=== PATIENT | male | born 1975 ===

== ENCOUNTER 2016-12-26 21:46 | Inpatient (IN) | payer SELFPAY ==
[2016-12-26 22:52] LABS: Bilirubin Negative (Negative); Blood, Urine Small (Negative); Glucose, Urine (Dipstick) Negative (Negative); Ketone, Urine 15 mg/dL (Negative); Nitrite Negative (Negative); Protein, Urine (Dipstick) 30 mg/dL (Neg-Trace)
[2016-12-26 22:54] LABS: Bacteria/HPF None Seen HPF (None Seen); Hyaline Casts/LPF 0-3 HYALINE CAST LPF (0-3 Hyaline); RBC/HPF 0-3 HPF (0-3); Squamous Epithelial None Seen HPF (0-3); WBC/HPF 0-3 HPF (0-3)
[2016-12-26 23:02] LABS: Amphetamine Not Detected (NotDetected); Methadone Not Detected (NotDetected); Methamphetamine Not Detected (NotDetected)
--- NOTE | 2016-12-26 23:05 | CT ---
CT BRAIN NONCONTRAST 12/26/16 HISTORY: Altered mental status. COMPARISON: None. FINDINGS: No territorial infarct or hemorrhage. No midline shift or mass effect. Ventricular size and extra-axi al CSF spaces are normal. Orbits are unremarkable. Soft tissues are unremarkable. Calvarium is intact. The paranasal sinuses an d mastoids are clear. IMPRESSION: No acute intracranial abnormality. POS: [facility]
[2016-12-26 23:09] LABS: #Monocytes 0.3 thou/uL (0.11-0.59); %Basophils 0.2 % (0.0-1.0); %Eosinophils 0.6 % (0.0-10.0); %Lymphocytes 22.3 % (21.0-51.0); %Monocytes 7.4 % (0.0-10.0); Hematocrit 40.4 % (42.0-52.0); Macrocytosis SLIGHT = 6-15 cells (100X) (0-5/hpf); Mean Platelet Volume 7.4 fL (7.4-10.4); Red Blood Cell (RBC) Count 3.73 mill/uL (4.70-6.10); White Blood Cell (WBC) Count 4.4 thou/uL (4.8-10.8)
[2016-12-26 23:13] LABS: ALT (SGPT) 55 U/L (8-55); AST (SGOT) 119 U/L (5-34); Alkaline Phosphatase 82 U/L (40-150); Anion Gap 28 mmol/L (10-20); BUN (Urea Nitrogen) Less than 4 mg/dL (8.9-20.6); Bilirubin, Total 0.9 mg/dL (0.2-1.2); Calc. Creatinine Clearance 0 mL/min (70-130); Calcium 9.4 mg/dL (7.8-10.44); Carbon Dioxide 15 mmol/L (22-29); Chloride 99 mmol/L (98-107); Estimated GFR-MDRD Greater than 90; Globulin 3.2 g/dL (2.4-3.5); Magnesium 1.6 mg/dL (1.6-2.6); Protein, Total 7.6 g/dL (6.0-8.3)
[2016-12-26] MEDS ORDERED: Multivitamins, Adult 10 ML, Thiamine HCl 100 MG, Folic Acid 1 MG in Dextrose 5 %-0.45 %... IV SCH ×4 (23:30)
[2016-12-26 23:40] LABS: Acetaminophen Less than 6.0 mcg/mL (10.0-30.0); Salicylate Less than 8.0 mg/dL (15.0-30.0)
[2016-12-27] MEDS ORDERED: Lorazepam 2 MG/ML VIAL ONE
[2016-12-27] MEDS ORDERED: Ondansetron HCl/PF 4 MG/2 ML Vial ONE (00:04)
[2016-12-27] MEDS ORDERED: Succinylcholine Chloride 20 MG/ML 10 ml SYRINGE FS ONE (00:05)
[2016-12-27] MEDS ORDERED: Propofol 1,000 MG/100 ML VIAL IV ONE (00:19)
[2016-12-27] MEDS ORDERED: Fentanyl 20 MCG/ML 250 ML ONE (00:19)
[2016-12-27] MEDS ORDERED: Midazolam HCl 5 mg/ml Vial ONE ×5 (00:32→01:32)
[2016-12-27 00:45] LABS: Lactic Acid - Sepsis 13.5 mmol/L (0.5-2.2)
[2016-12-27 00:53] LABS: Oxyhemoglobin 97.3 % (94.0-97.0); Sodium 140 mmol/L (135-148)
[2016-12-27] MEDS ORDERED: Fomepizole 1.2 GM in Sodium Chloride 0.9% 100 ML IVPB SCH (01:00)
[2016-12-27] MEDS ORDERED: Diazepam 10 MG/2 ML SYRINGE ONE ×3 (01:02→02:28)
[2016-12-27] MEDS ORDERED: HYDROMORPHONE HCL ONE (01:05)
[2016-12-27] MEDS ORDERED: Sodium Bicarbonate 2.4 MEQ/5 ML ONE (01:13)
[2016-12-27] MEDS ORDERED: Sodium Bicarb 50 MEQ/50 ML Abboject 8.4% SYRINGE ONE (01:14)
[2016-12-27] MEDS ORDERED: levETIRAcetam In NaCl (Iso-Os) 1,500 MG in Premix Bag 1 BAG IVPB SCH ×2 (01:30)
--- NOTE | 2016-12-27 01:30 | PDOC.EVN ---
Event Note - Event Note Event Note: [id number] 1. Acute encephalopathy + Possible DT 2. Seizures 3. Acute respiratory failure 4. R/O Aspirtaion 5. Anion gap metbaolic acidosis 6. Alcohol abuse plan: see orders
[2016-12-27] MEDS ORDERED: Ondansetron HCl/PF 4 MG/2 ML Vial IVP PRN (02:05)
[2016-12-27] MEDS ORDERED: Multivitamins, Adult 10 ML, Folic Acid 1 MG, Thiamine HCl 100 MG in Dextrose 5 %-0.45 %... IV SCH ×4 (02:15)
[2016-12-27] MEDS ORDERED: Propofol 1,000 MG/100 ML VIAL IV PRN (02:15)
[2016-12-27 02:21] LABS: Modified Allen's Test POSITIVE; Vent YES
[2016-12-27 02:22] LABS: Mechanical Tidal Volume 550 ml; Mode SIMV; Pressure Support 10 cmH2O
[2016-12-27 02:29] LABS: Oxyhemoglobin 97.6 % (94.0-97.0); Sodium 138 mmol/L (135-148)
[2016-12-27] MEDS ORDERED: Lorazepam 2 MG/ML VIAL SLOW IVP PRN (02:53)
[2016-12-27] MEDS ORDERED: Fentanyl 20 MCG/ML 250 ML IVPB SCH (02:53)
[2016-12-27] MEDS ORDERED: DISCONTINUE PREVIOUS NARCOTIC PAIN MEDICATIONS AND BENZODIAZEPINES FS SCH (02:53)
[2016-12-27] MEDS ORDERED: Morphine 4 MG/ML VIAL IV PRN (02:54)
[2016-12-27 02:55] LABS: Mechanical Tidal Volume 550 ml; Modified Allen's Test POSITIVE; Pressure Support 10 cmH2O; Vent YES
[2016-12-27 02:56] LABS: Mode SIMV
[2016-12-27 03:24] LABS: #Basophils 0.1 thou/uL (0.0-0.2); #Lymphocytes 0.5 thou/uL (1.20-3.40); #Monocytes 0.4 thou/uL (0.11-0.59); #Neutrophils 3.2 thou/uL (1.40-6.50); %Basophils 1.3 % (0.0-1.0); %Eosinophils 0.3 % (0.0-10.0); %Lymphocytes 12.8 % (21.0-51.0); %Monocytes 8.8 % (0.0-10.0); Hematocrit 34.6 % (42.0-52.0); Red Blood Cell (RBC) Count 3.22 mill/uL (4.70-6.10); White Blood Cell (WBC) Count 4.2 thou/uL (4.8-10.8)
[2016-12-27] MEDS: Piperacillin/Tazobactam 3.375 GM in Sodium Chloride 0.9% 100 ML IVPB SCH ×4 (03:39→21:18)
[2016-12-27 03:53] VITALS: BMI 22.2
[2016-12-27 04:15] LABS: ALT (SGPT) 46 U/L (8-55); AST (SGOT) 127 U/L (5-34); Alkaline Phosphatase 64 U/L (40-150); Anion Gap 17 mmol/L (10-20); BUN (Urea Nitrogen) Less than 4 mg/dL (8.9-20.6); Bilirubin, Total 1.3 mg/dL (0.2-1.2); Calc. Creatinine Clearance 132 mL/min (70-130); Carbon Dioxide 24 mmol/L (22-29); Chloride 104 mmol/L (98-107); Estimated GFR-MDRD Greater than 90; Globulin 2.6 g/dL (2.4-3.5); Protein, Total 6.3 g/dL (6.0-8.3)
[2016-12-27] MEDS ORDERED: Heparin 5,000 UNITS/ML VIAL SC SCH (09:00)
[2016-12-27] MEDS ORDERED: Famotidine/PF 20 mg/2ml Vial SLOW IVP SCH (09:00)
--- NOTE | 2016-12-27 09:25 | RAD ---
PORTABLE SUPINE CHEST: Date: 12/27/16 HISTORY: Central line placement. COMPARISON: Prior day's study. FINDINGS: This film does not entirely include the right lung apex. A right central line is seen with the cathet er tip overlying the superior vena cava. I see no signs of pneumothorax, but a small pneumothorax can not be excluded. Repeat film would be recommended for more complete assessment. Endotracheal and NG t ubes remain in satisfactory position. IMPRESSION: Placement of right-sided central line, catheter tip overlies superior vena cava. No signs of pneumoth orax; however, the right lung apex is not included on this film. POS: [facility]
[2016-12-27] MEDS: Sodium Chloride 0.9% 1,000 ML IV SCH ×2 (09:45→18:36)
--- NOTE | 2016-12-27 09:51 | RAD ---
PORTABLE SUPINE CHEST: Date: 12/27/16 HISTORY: Patient found on side of road in car with altered mental status. Intubation evaluation. FINDINGS: Endotracheal tube is in satisfactory position. NG tube is below the hemidiaphragm. Heart size and med iastinal structures are within normal limits. Lungs appear clear of infiltrates. IMPRESSION: Endotracheal tube and NG tubes in satisfactory position. POS: [facility]
--- NOTE | 2016-12-27 10:34 | HP ---
DATE OF ADMISSION: 12/27/2016 CHIEF COMPLAINT: Confusion. HISTORY OF PRESENT ILLNESS: The patient is a 41-year-old male with past medical history of hypertension and alcohol usage, who was brought to the ER because the patient was found confused on the road, also the patient was brought to the ER by EMS. Upon arrival to the EMS, the patient was slightly anxious but oriented x2 initially. Following later on, the patient started getting more anxious and started seizing in the ER. The patient had 2 episodes of vomiting, so the patient was intubated for airway protection. By the time I saw the patient, the patient is intubated. Currently having some jerky movements while on sedation. No other history available at this time. According to the nurse, the patient was oriented initially, but she some history of alcohol usage and possible withdrawing also. PAST MEDICAL HISTORY: As per HPI. PAST SURGICAL HISTORY: None. ALLERGIES: No known drug allergies. FAMILY HISTORY: None available at this time. There are no family members. SOCIAL HISTORY: Unavailable at this time. REVIEW OF SYSTEMS: Not available from the patient. PHYSICAL EXAMINATION: VITAL SIGNS: blood pressure 147/100, pulse ox 100%, heart rate 75. GENERAL: This patient appears tired and intubated. HEENT: Anterior nares patent. Positive ET tube. NECK: Supple. No JVD. CARDIOVASCULAR SYSTEM: S1, S2 present. Regular rate and rhythm. RESPIRATORY SYSTEM: No wheezing, no rhonchi. Diminished at the bases. GASTROINTESTINAL: Abdomen is soft, nontender, no guarding, no rebound tenderness. MUSCULOSKELETAL: No edema. CRANIAL NERVE SYSTEM: The patient is sedated and intubated and not able to follow any commands. INTEGUMENTARY: No obvious rashes seen. PSYCHIATRIC: Mood calm at this time. LABORATORY DATA: At the time of H&P performed, white count 4.4, hemoglobin 13.7 , platelet count is 90. Sodium 138, potassium 3.6, chloride is 99, CO2 15, anion gap 24, BUN is less than 4 and creatinine 0.8, AST 119, AST 55. Urine specific gravity 1.013, protein 30, ketones 15. Toxicology: Salicylate less than 8, acetaminophen less than 6. Alcohol level is 35. ASSESSMENT AND PLAN: The patient is 41-year-old female. 1. Acute encephalopathy, probably secondary to delirium tremens, currently intubated, monitor mental status closely. Plan to do CT head without contrast to rule out any bleed. 2. Anion gap metabolic acidosis. Appears probably secondary to alcohol. We will monitor bicarbonate level closely. 3. History of hypertension. Monitor blood pressure. Continue home blood pressure meds. 4. Acute respiratory failure and rule out aspiration. Plan to start the patient on antibiotics. Plan to continue vent support. Monitor the patient closely. The case was discussed in detail with the patient and ED nurse and ED physician also. OSCAR
[2016-12-27] MEDS: Pantoprazole 40 MG VIAL IVP SCH (11:13)
[2016-12-27] MEDS ORDERED: FOMEPIZOLE IVPB SCH (12:00)
[2016-12-27] MEDS ORDERED: SODIUM CHLORIDE 0.9% IVPB SCH (12:00)
[2016-12-27] MEDS ORDERED: Acetaminophen 500 MG TAB PO PRN (16:31)
--- NOTE | 2016-12-27 17:19 | CON ---
DATE OF CONSULTATION: 12/27/2016 HISTORY OF PRESENT ILLNESS: This is a 41-year-old gentleman who apparently was traveling from [facility] to [facility] to come for an interview. He was found on the side of the road with acute mental status change but could not remember anything else. He is shaking. He was brought to the ER where the ER physician did extensive workup. His initial al cohol was only 35. It is unclear what is the initial condition was, but apparently he was confused about providing infor mation. His mother states that he had previous history of drinking beer, but clearly the alcohol level of 35, the patient was not drinking significantly. His anion gap was elevated 28, his osmolar gap was 30. He apparently seized in the ER with multiple refractory seizures. He was intubated to protect his airways. 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 There is nothing to suspect he had this. His urine showed no crystals. We are trying to get additional information from his mother as they arrive. He had initial lab in the ER including an emergency CT of his head that were showed no other abnormal ity. This morning he is on three medicines, propofol, fentanyl and versed for sedation, because of b iting his tube. No past history at this time. No chronic medication at this time. We will talk to his mother when she is available. PHYSICAL EXAMINAITON: VITAL SIGNS: Sats are 100%, blood pressure 140/80, pulse 80, respirations 18. HEENT: Pupils are at pinpoint. NEUROLOGIC: He is sedated. CHEST: Reveals decreased breath sounds, no wheezing. CARDIAC: Normal S1, S2. ABDOMEN: Soft, no masses. LABORATORY DATA: White count 4000, H&H is 12 and 34, platelet count is at low 65. His pO2 is 207, p CO2 27, pH 7.59, on a rate of 20, 500, 50%, marked respiratory alkalosis. His kidney functions are n ormal. His bicarbonate is 24. His anion gap is 17. Electrolytes are normal. Liver function is sli ghtly elevated, AST 27. Albumin is 3.7. ASSESSMENT AND PLAN: 1. Encephalopathy, metabolic. 2. No history to suspect alcohol abuse. Alcohol level is only 35 on admission. 3. History of hypertension. 4. Thrombocytopenia, etiology unclear, possible sepsis. He was started on broad spectrum antibiotics. I will hold off sedation. I agree with Tara. We wi ll await input from Neurology. Continue hydration, supportive care. We will follow. Forty-five minutes critical care time.
[2016-12-28] MEDS: Sodium Chloride 0.9% 1,000 ML IV SCH (04:06)
[2016-12-28] MEDS: Piperacillin/Tazobactam 3.375 GM in Sodium Chloride 0.9% 100 ML IVPB SCH (04:06)
--- NOTE | 2016-12-28 04:56 | CON ---
DATE OF CONSULTATION: 12/27/2016 REFERRING PROVIDER: Oren Munroe MD REASON FOR CONSULTATION: Seizure. HISTORY OF PRESENT ILLNESS: Mr. Kessler is a pleasant 41-year-old male who has been consulted for evaluation of seizures. History is obtained from the patient's medical chart as well as a nurse who is taking care of the patient. The patient had presented to the [facility] on 12/26/2016 with an episode of seizure-like activity. He apparently was found confused on the road by police. He was brought to the [facility]. On arrival here , he had 2 episodes of seizures and had to be intubated for airway protection. The patient had been intubated until late this afternoon and he was just extubated few hours before my examination. He was somewhat groggy from this. He reports that he has a history of seizure and he does take anticonvulsant, but he does not know the name of. He has also mentioned that he has not been compliant with his medication like he is supposed to be. According to the nurse , he has not had any seizure event since being in the ICU. She states that his aunt had gone inside his house and took pictures of the bottles of the medications that he was supposed to be on. According to the bottle, he was supposed to be on Keppra 500 mg tablets, which he has not filled since September and the bottle that he had at home was completely full, which suggested that he was not taking his medications at all. He has also been drinking heavily and there may be a withdrawal effect as well. PAST MEDICAL HISTORY: Significant for hypertension and alcohol abuse. PAST SURGICAL HISTORY: None. SOCIAL HISTORY: He has a history of heavy alcohol use. He denied smoking or illicit drug use. CURRENT MEDICATIONS: Please review MAR. ALLERGIES: No known drug allergies. FAMILY HISTORY: Noncontributory. REVIEW OF SYSTEMS: As mentioned above in HPI, otherwise negative. PHYSICAL EXAMINATION: VITAL SIGNS: Blood pressure 111/70, pulse of 77, respirations of 13, O2 sats of 100%, temperature of 101.5. GENERAL: Well-developed, well-nourished, somewhat groggy-appearing male, in no apparent distress. RESPIRATORY: Clear to auscultation bilaterally. CARDIOVASCULAR: Regular rate and rhythm. NEUROLOGIC: Mental status: The patient is somewhat groggy appearing. He does respond to verbal stimuli. He does follow simple commands. Cranial nerves: Pupils are 3 mm and reactive. Visual casiano are intact. Extraocular muscles are intact. No nystagmus is noted. Face is symmetric. Tongue and uvula are midline. Motor exam showed normal tone and bulk with 5/5 strength in upper and lower extremities. Sensory: Sensation is intact and symmetric. There is asterixis noted in both upper extremities. Deep tendon reflexes: 2+ reflexes in both upper and lower extremities. Babinski: Plantar responses flexion bilaterally. Coordination: Intact to [id number]. LABORATORY DATA: Reviewed, which included CBC, CMP, urinalysis, urine drug screen, and plasma alcohol level, which is significant for WBC of 4.2, hemoglobin 12.1, hematocrit of 34.6, platelet count of 65, AST of 127, total bilirubin of 1.3. Urine drug screen was negative. Plasma alcohol level was 35. IMAGING STUDIES: CT head without contrast was reviewed, which showed no acute intracranial abnormality. IMPRESSION: 1. Recurrent seizures. 2. Alcohol abuse. 3. Possible alcohol withdrawal seizures. ASSESSMENT AND PLAN: Mr. Kessler is a pleasant 41-year-old male who presented with the confusion. It is likely that the patient was found in a postictal state and had recurrent seizures while in the emergency room. The seizures could have been non-compliant with the medication as well as withdrawal from the alcohol. At this time, I would recommend continuing him on Keppra 500 mg b.i.d. Continue supportive care. Thank you for your consultation. LIZZIED
[2016-12-28 05:12] LABS: Anion Gap 12 mmol/L (10-20); BUN (Urea Nitrogen) Less than 4 mg/dL (8.9-20.6); Calc. Creatinine Clearance 141 mL/min (70-130); Carbon Dioxide 24 mmol/L (22-29); Chloride 104 mmol/L (98-107); Estimated GFR-MDRD Greater than 90
[2016-12-28 05:57] LABS: #Eosinphils 0.1 thou/uL (0.0-0.7); #Monocytes 0.3 thou/uL (0.11-0.59); #Neutrophils 2.9 thou/uL (1.40-6.50); %Basophils 0.7 % (0.0-1.0); %Eosinophils 1.8 % (0.0-10.0); %Lymphocytes 22.8 % (21.0-51.0); %Monocytes 6.8 % (0.0-10.0); Hematocrit 37.8 % (42.0-52.0); Red Blood Cell (RBC) Count 3.52 mill/uL (4.70-6.10); White Blood Cell (WBC) Count 4.3 thou/uL (4.8-10.8)
[2016-12-28] MEDS ORDERED: FLU VACC QS2017-18 36 mo. & older 0.5 ML SYRINGE IM ONE (09:00)
[2016-12-28 09:28] LABS: ALT (SGPT) 33 U/L (8-55); AST (SGOT) 79 U/L (5-34); Alkaline Phosphatase 65 U/L (40-150); Bilirubin, Direct 0.9 mg/dL (0.1-0.3); Magnesium 1.3 mg/dL (1.6-2.6); Phosphorus 2.3 mg/dL (2.3-4.7); Protein, Total 6.2 g/dL (6.0-8.3)
[2016-12-28] MEDS: Multivitamin W/ Minerals 1 TAB PO SCH (09:36)
[2016-12-28] MEDS: Pantoprazole 40 MG VIAL IVP SCH (09:37)
[2016-12-28] MEDS ORDERED: Sodium Chloride 0.65% Nasal 44 ML BOT EA NARE PRN (09:40)
[2016-12-28] MEDS ORDERED: Diabetic Tussin 200 MG/10 ML UDCUP PO PRN (09:40)
[2016-12-28] MEDS ORDERED: Temazepam 15 MG CAP PO PRN (09:40)
[2016-12-28] MEDS ORDERED: Loratadine 10 MG TAB PO PRN (09:40)
[2016-12-28] MEDS ORDERED: hydrALAZINE 20 MG/ML VIAL SLOW IVP PRN (09:40)
[2016-12-28] MEDS ORDERED: Mag-Al 1200 mg/1200 mg/30 ML UDCUP PO PRN (09:40)
[2016-12-28] MEDS ORDERED: HYDROcodone/Acetaminophen 5/325 mg Tablet PO PRN (09:40)
[2016-12-28] MEDS ORDERED: Senokot 8.6 MG TAB PO PRN (09:40)
[2016-12-28] MEDS ORDERED: Lorazepam 1 MG TAB PO PRN (09:40)
[2016-12-28] MEDS ORDERED: Ondansetron ODT 4 MG TAB PO PRN (09:40)
[2016-12-28] MEDS ORDERED: Milk Of Magnesia 30 ML UDCUP PO PRN (09:40)
[2016-12-28] MEDS ORDERED: Magnesium Sulfate 4 GM in Sodium Chloride 0.9% 250 ML 250 ML IVPB SCH (10:30)
[2016-12-28] MEDS ORDERED: Cyanocobalamin (Vitamin B-12) 1,000 MCG TAB PO SCH (10:30)
--- NOTE | 2016-12-28 10:36 | PDOC.PN ---
- Subjective Encounter Start Date: 12/28/16 Encounter Start Time: 09:00 -: old records requested/rev pt was extubated yesterday, he is alert, no seizure, no fever - Objective MAR Reviewed: Yes Vital Signs & Weight: Vital Signs (12 hours) Temp Pulse Resp Pulse Ox 12/28/16 07:22 98.7 F 86 12 97 12/28/16 07:00 98.7 F 12/28/16 04:00 99.2 F 12/28/16 00:00 99.1 F 98 Weight Admit Weight 159 lb 6.307 oz Weight 158 lb 15.253 oz Most Recent Monitor Data Heart Rate from ECG 90 NIBP 117/91 NIBP BP-Mean 95 Respiration from ECG 12 SpO2 100 I&O: 12/27/16 12/28/16 12/29/16 06:59 06:59 06:59 Intake Total 713.0 3732.1 780 Output Total 1350 4265 231 Balance -637.0 -532.9 549 Result Diagrams: 12/28/16 04:00 12/28/16 04:00 EKG Reviewed by me: Yes (nsr) Phys Exam - Physical Examination Constitutional: NAD HEENT: PERRLA, moist MMs, sclera anicteric Neck: no JVD, supple Respiratory: no wheezing, no rales, no rhonchi Cardiovascular: RRR, no significant murmur, no rub Gastrointestinal: soft, non-tender, no distention, positive bowel sounds Musculoskeletal: no edema, pulses present Neurological: non-focal, normal sensation, moves all 4 limbs Lymphatic: no nodes Psychiatric: normal affect Skin: no rash, normal turgor Dx/Plan (1) Acute metabolic encephalopathy Code(s): G93.41 - METABOLIC ENCEPHALOPATHY Status: Acute (2) Acute respiratory failure with hypoxia Code(s): J96.01 - ACUTE RESPIRATORY FAILURE WITH HYPOXIA Status: Resolved (3) High anion gap metabolic acidosis Code(s): E87.2 - ACIDOSIS Status: Resolved (4) Macrocytic anemia Code(s): D53.9 - NUTRITIONAL ANEMIA, UNSPECIFIED Status: Chronic (5) Seizure Code(s): R56.9 - UNSPECIFIED CONVULSIONS Status: Resolved (6) Thrombocytopenia Code(s): D69.6 - THROMBOCYTOPENIA, UNSPECIFIED Status: Chronic (7) Alcohol abuse Code(s): F10.10 - ALCOHOL ABUSE, UNCOMPLICATED Status: Chronic (8) Hypertension Code(s): I10 - ESSENTIAL (PRIMARY) HYPERTENSION Status: Chronic (9) Rhabdomyolysis Code(s): M62.82 - RHABDOMYOLYSIS Status: Acute - Plan cont current plan of care * will start folic acid, thiamin, vitamin B12 * change to po protonix * transfer to stroke floor * watch for any seizure * change IVF to dex with NS with KCL * start diet * medication reviewed as below * symptomatic treatment. * replace potassium and magnesium * repeat labs tomorrow Review of Systems - Review of Systems ENT: negative: Ear Pain, Ear Discharge, Nose Pain, Nose Discharge, Nose Congestion, Mouth Pain, Mouth Swelling, Throat Pain, Throat Swelling, Other Respiratory: negative: Cough, Dry, Shortness of Breath, Hemoptysis, SOB with Excertion, Pleuritic Pain, Sputum, Wheezing Cardiovascular: negative: Chest Pain, Palpitations, Orthopnea, Paroxysmal Noc. Dyspnea, Edema, Light Headedness, Other Gastrointestinal: negative: Nausea, Vomiting, Abdominal Pain, Diarrhea, Constipation, Melena, Hematochezia, Other Genitourinary: negative: Dysuria, Frequency, Incontinence, Hematuria, Retention , Other Musculoskeletal: negative: Neck Pain, Shoulder Pain, Arm Pain, Back Pain, Hand Pain, Leg Pain, Foot Pain, Other Skin: negative: Rash, Lesions, Allen, Bruising, Other - Medications/Allergies Allergies/Adverse Reactions: Allergies Allergy/AdvReac Type Severity Reaction Status Date / Time No Known Allergies Allergy Unverified 12/26/16 23:21 Medications: Current Medications Acetaminophen (Tylenol) 500 mg PO Q6H PRN PRN Reason: .FEVER > 101 Last Admin: 12/27/16 17:12 Dose: 500 mg Hydrocodone Bitart/Acetaminophen ([place] 5/325) 1 tab PO Q4H PRN PRN Reason: Moderate Pain (4-6) Al Hydroxide/Mg Hydroxide (Maalox) 15 ml PO Q4H PRN PRN Reason: Heartburn or Indigestion Cyanocobalamin (Vitamin B-12) 1,000 mcg PO DAILY ARIEL Cyanocobalamin (Vitamin B-12) 1,000 mcg PO 1030 ARIEL Stop: 12/28/16 12:30 Folic Acid (Folvite) 1 mg PO DAILY ARIEL Guaifenesin (Robitussin Sf) 200 mg PO Q4H PRN PRN Reason: Cough Hydralazine HCl (Apresoline) 10 mg SLOW IVP Q4H PRN PRN Reason: Systolic BP > 180 Levetiracetam 500 mg/ Device 100 mls @ 200 mls/hr IVPB BID [facility] Last Admin: 12/28/16 09:36 Dose: 100 mls Magnesium Sulfate 4 gm/ Sodium (Chloride) 258 mls @ 86 mls/hr IVPB 1030 [facility] Stop: 12/28/16 13:29 Iron/Minerals/Multivitamins (Theragran M) 1 tab PO DAILY [facility] Last Admin: 12/28/16 09:36 Dose: 1 tab Loratadine (Claritin) 10 mg PO DAILYPRN PRN PRN Reason: Sinus Symptoms Lorazepam (Ativan) 1 mg PO Q4H PRN PRN Reason: Anxiety/Agitation Magnesium Hydroxide (Milk Of Magnesium) 30 ml PO DAILYPRN PRN PRN Reason: Constipation Ondansetron HCl (Zofran) 4 mg IVP Q6H PRN PRN Reason: Nausea/Vomiting Ondansetron HCl (Zofran Odt) 4 mg PO Q6H PRN PRN Reason: Nausea/Vomiting Pantoprazole Sodium (Protonix) 40 mg PO DAILY [facility] Potassium Chloride (K-Dur) 40 meq PO BID-[facility] Stop: 12/29/16 08:01 Senna (Senokot) 2 tab PO HSPRN PRN PRN Reason: Constipation Sodium Chloride (Flush - Normal Saline) 10 ml IVF Q12HR [facility] Last Admin: 12/28/16 09:37 Dose: 10 ml Sodium Chloride (Flush - Normal Saline) 10 ml IVF PRN PRN PRN Reason: Saline Flush Sodium Chloride ([place] Nasal [place] 0.65%) 0 ml EA NARE QIDPRN PRN PRN Reason: Nasal Congestion Temazepam (Restoril) 15 mg PO HSPRN PRN PRN Reason: Insomnia Thiamine HCl (Thiamine) 100 mg PO DAILY [facility]
[2016-12-28] MEDS: Potassium Chloride 20 MEQ TAB PO SCH (11:44)
[2016-12-28] MEDS: Folic Acid 1 MG TAB PO SCH (11:45)
--- NOTE | 2016-12-28 13:28 | PRG ---
DATE OF SERVICE: 12/28/2016 SUBJECTIVE: Awake, alert, responsive. He is still unable to recollect events of the last 24 hours. OBJECTIVE: VITAL SIGNS: Blood pressure 190/95, sat 97% on room air, respirations 18. GENERAL: He is awake, alert, and responsive. CHEST: Chest reveals decreased breath sounds without any wheezing. CARDIAC: Sinus tachycardia. ABDOMEN: No masses. LABORATORY DATA: White count was 4.3, hemoglobin and hematocrit is 12 and 37, platelet count is low at 55. His electrolytes are normal. IMPRESSION: 1. History of alcohol abuse. 2. Encephalopathy. 3. Respiratory failure. 4. Seizure disorder. PLAN: Discontinue antibiotics. Continue Keppra. He can be transferred out of the ICU and he needs ongoing counseling.
[2016-12-28] MEDS: D5 0.9% NS w/ 20 mEq KCl 1,000 ML IV SCH ×2 (15:06→20:14)
[2016-12-29] MEDS: D5 0.9% NS w/ 20 mEq KCl 1,000 ML IV SCH (04:24)
[2016-12-29 08:58] LABS: #Eosinphils 0.1 thou/uL (0.0-0.7); #Lymphocytes 1.2 thou/uL (1.20-3.40); #Monocytes 0.4 thou/uL (0.11-0.59); #Neutrophils 2.8 thou/uL (1.40-6.50); %Basophils 0.5 % (0.0-1.0); %Eosinophils 2.4 % (0.0-10.0); %Lymphocytes 26.5 % (21.0-51.0); %Monocytes 9.5 % (0.0-10.0); Hematocrit 37.2 % (42.0-52.0); Mean Platelet Volume 7.9 fL (7.4-10.4); Red Blood Cell (RBC) Count 3.44 mill/uL (4.70-6.10); White Blood Cell (WBC) Count 4.6 thou/uL (4.8-10.8)
[2016-12-29 09:11] LABS: Anion Gap 9 mmol/L (10-20); BUN (Urea Nitrogen) Less than 4 mg/dL (8.9-20.6); Calc. Creatinine Clearance 147 mL/min (70-130); Calcium 8.8 mg/dL (7.8-10.44); Carbon Dioxide 22 mmol/L (22-29); Chloride 108 mmol/L (98-107); Estimated GFR-MDRD Greater than 90
--- NOTE | 2016-12-29 09:47 | PRG ---
DATE OF SERVICE: 12/29/2016 SUBJECTIVE: This morning, he is awake, alert, responsive, in no distress. Sats 100% on room air. OBJECTIVE: VITAL SIGNS: Blood pressure 126/95, respiratory rate 18. CHEST: Decreased breath sounds without any wheezing. CARDIAC: Normal S1, S2. ABDOMEN: Soft, no masses. I's and O's are 4123 and 3650. His liver profile shows the bilirubin is 2, AST is 79, ALT 33. CK is 1865. IMPRESSION: 1. Status post encephalopathy probably secondary to alcohol abuse. 2. Thrombocytopenia from chronic alcohol abuse with hepatic failure. 3. Seizure disorder. PLAN: 1. He can probably be transferred out of the ICU. 2. Continue supportive care and PT.
[2016-12-29] MEDS: Potassium Chloride 20 MEQ TAB PO SCH (10:37)
[2016-12-29] MEDS: Folic Acid 1 MG TAB PO SCH (10:38)
[2016-12-29] MEDS: Cyanocobalamin (Vitamin B-12) 1,000 MCG TAB PO SCH (10:38)
[2016-12-29] MEDS: Multivitamin W/ Minerals 1 TAB PO SCH (10:38)
--- NOTE | 2016-12-29 10:43 | PDOC.PN ---
- Subjective Encounter Start Date: 12/29/16 Encounter Start Time: 10:10 -: old records requested/rev Patient seen and examined. No new complaints. No overnight events, pt is unsteady on his feet - Objective MAR Reviewed: Yes Vital Signs & Weight: Vital Signs (12 hours) Temp 12/29/16 04:00 98.8 F 12/29/16 00:00 98.4 F Weight Admit Weight 159 lb 6.307 oz Weight 158 lb 15.253 oz Most Recent Monitor Data Heart Rate from ECG 100 NIBP 126/94 NIBP BP-Mean 109 Respiration from ECG 19 SpO2 96 I&O: 12/28/16 12/29/16 12/30/16 06:59 06:59 06:59 Intake Total 3732.1 4123 Output Total 4265 3651 Balance -532.9 472 Result Diagrams: 12/29/16 08:30 12/29/16 08:30 EKG Reviewed by me: Yes Phys Exam - Physical Examination Constitutional: NAD HEENT: PERRLA, moist MMs, sclera anicteric Neck: no JVD, supple Respiratory: no wheezing, no rales, no rhonchi Cardiovascular: RRR, no significant murmur, no rub Gastrointestinal: soft, non-tender, no distention, positive bowel sounds Musculoskeletal: no edema, pulses present Neurological: non-focal, normal sensation Lymphatic: no nodes Psychiatric: normal affect Skin: no rash, normal turgor Dx/Plan (1) Acute metabolic encephalopathy Code(s): G93.41 - METABOLIC ENCEPHALOPATHY Status: Acute (2) Acute respiratory failure with hypoxia Code(s): J96.01 - ACUTE RESPIRATORY FAILURE WITH HYPOXIA Status: Resolved (3) High anion gap metabolic acidosis Code(s): E87.2 - ACIDOSIS Status: Resolved (4) Macrocytic anemia Code(s): D53.9 - NUTRITIONAL ANEMIA, UNSPECIFIED Status: Chronic (5) Seizure Code(s): R56.9 - UNSPECIFIED CONVULSIONS Status: Resolved (6) Thrombocytopenia Code(s): D69.6 - THROMBOCYTOPENIA, UNSPECIFIED Status: Chronic (7) Alcohol abuse Code(s): F10.10 - ALCOHOL ABUSE, UNCOMPLICATED Status: Chronic (8) Hypertension Code(s): I10 - ESSENTIAL (PRIMARY) HYPERTENSION Status: Chronic (9) Rhabdomyolysis Code(s): M62.82 - RHABDOMYOLYSIS Status: Acute (10) Hypophosphatemia Code(s): E83.39 - OTHER DISORDERS OF PHOSPHORUS METABOLISM Status: Acute (11) Hypomagnesemia Code(s): E83.42 - HYPOMAGNESEMIA Status: Acute - Plan cont current plan of care * transfer to medical * replace phosphorus * discontinue IVF * change to po protonix * medication reviewed as below * symptomatic treatment. Review of Systems - Review of Systems ENT: negative: Ear Pain, Ear Discharge, Nose Pain, Nose Discharge, Nose Congestion, Mouth Pain, Mouth Swelling, Throat Pain, Throat Swelling, Other Respiratory: negative: Cough, Dry, Shortness of Breath, Hemoptysis, SOB with Excertion, Pleuritic Pain, Sputum, Wheezing Cardiovascular: negative: Chest Pain, Palpitations, Orthopnea, Paroxysmal Noc. Dyspnea, Edema, Light Headedness, Other Gastrointestinal: negative: Nausea, Vomiting, Abdominal Pain, Diarrhea, Constipation, Melena, Hematochezia, Other Genitourinary: negative: Dysuria, Frequency, Incontinence, Hematuria, Retention , Other Musculoskeletal: negative: Neck Pain, Shoulder Pain, Arm Pain, Back Pain, Hand Pain, Leg Pain, Foot Pain, Other - Medications/Allergies Allergies/Adverse Reactions: Allergies Allergy/AdvReac Type Severity Reaction Status Date / Time No Known Allergies Allergy Unverified 12/26/16 23:21 Medications: Current Medications Acetaminophen (Tylenol) 500 mg PO Q6H PRN PRN Reason: .FEVER > 101 Last Admin: 12/27/16 17:12 Dose: 500 mg Hydrocodone Bitart/Acetaminophen ([place] 5/325) 1 tab PO Q4H PRN PRN Reason: Moderate Pain (4-6) Al Hydroxide/Mg Hydroxide (Maalox) 15 ml PO Q4H PRN PRN Reason: Heartburn or Indigestion Cyanocobalamin (Vitamin B-12) 1,000 mcg PO DAILY ARIEL Folic Acid (Folvite) 1 mg PO DAILY ARIEL Last Admin: 12/28/16 11:45 Dose: 1 mg Guaifenesin (Robitussin Sf) 200 mg PO Q4H PRN PRN Reason: Cough Hydralazine HCl (Apresoline) 10 mg SLOW IVP Q4H PRN PRN Reason: Systolic BP > 180 Levetiracetam 500 mg/ Device 100 mls @ 200 mls/hr IVPB BID [facility] Last Admin: 12/28/16 20:14 Dose: 100 mls Iron/Minerals/Multivitamins (Theragran M) 1 tab PO DAILY [facility] Last Admin: 12/28/16 09:36 Dose: 1 tab Loratadine (Claritin) 10 mg PO DAILYPRN PRN PRN Reason: Sinus Symptoms Lorazepam (Ativan) 1 mg PO Q4H PRN PRN Reason: Anxiety/Agitation Magnesium Hydroxide (Milk Of Magnesium) 30 ml PO DAILYPRN PRN PRN Reason: Constipation Miscellaneous Medication (Phos-Nak) 1 pkt PO NOW [facility] Stop: 12/29/16 11:00 Ondansetron HCl (Zofran) 4 mg IVP Q6H PRN PRN Reason: Nausea/Vomiting Ondansetron HCl (Zofran Odt) 4 mg PO Q6H PRN PRN Reason: Nausea/Vomiting Pantoprazole Sodium (Protonix) 40 mg PO DAILY [facility] Senna (Senokot) 2 tab PO HSPRN PRN PRN Reason: Constipation Sodium Chloride (Flush - Normal Saline) 10 ml IVF Q12HR [facility] Last Admin: 12/28/16 20:15 Dose: 10 ml Sodium Chloride (Flush - Normal Saline) 10 ml IVF PRN PRN PRN Reason: Saline Flush Sodium Chloride ([place] Nasal [place] 0.65%) 0 ml EA NARE QIDPRN PRN PRN Reason: Nasal Congestion Temazepam (Restoril) 15 mg PO HSPRN PRN PRN Reason: Insomnia Thiamine HCl (Thiamine) 100 mg PO DAILY [facility] Last Admin: 12/28/16 11:45 Dose: 100 mg
[2016-12-30] MEDS: Cyanocobalamin (Vitamin B-12) 1,000 MCG TAB PO SCH (07:53)
[2016-12-30] MEDS: Multivitamin W/ Minerals 1 TAB PO SCH (07:53)
[2016-12-30] MEDS: Folic Acid 1 MG TAB PO SCH (07:53)
--- NOTE | 2016-12-30 09:40 | PRG ---
DATE OF SERVICE: 12/30/2016 This morning he is awake, alert, responsive, in no distress. No shortness of breath. PHYSICAL EXAMINATION: VITAL SIGNS: Blood pressure 120/80, pulse 80, respirations 18. CHEST: Chest reveals decreased breath sounds without any wheezing. CARDIAC: Normal S1, S2. IMPRESSION: 1. Status post encephalopathy. 2. Seizure disorders. 3. Alcohol abuse. PLAN: From a pulmonary standpoint of view he can be discharged home. He needs ongoing counseling.
[2016-12-30 11:11] VITALS: BP 148/101; TEMP 97.4
--- NOTE | 2016-12-30 13:49 | PDOC.PN ---
- Subjective Encounter Start Date: 12/30/16 Encounter Start Time: 09:25 -: old records requested/rev Patient seen and examined. No new complaints. No overnight events - Objective MAR Reviewed: Yes Vital Signs & Weight: Vital Signs (12 hours) Temp Pulse Resp BP Pulse Ox 12/30/16 11:08 97.4 F L 115 H 20 148/101 H 98 12/30/16 08:00 98.8 F 84 16 138/100 H 98 12/30/16 06:00 97.9 F 91 18 142/101 H 98 Weight Admit Weight 159 lb 6.307 oz Weight 158 lb 15.253 oz Most Recent Monitor Data Heart Rate from ECG 95 NIBP 142/93 NIBP BP-Mean 101 Respiration from ECG 18 SpO2 99 I&O: 12/29/16 12/30/16 12/31/16 06:59 06:59 06:59 Intake Total 4123 2325 Output Total 3651 1000 Balance 472 1325 Result Diagrams: 12/29/16 08:30 12/29/16 08:30 Phys Exam - Physical Examination Constitutional: NAD HEENT: PERRLA, moist MMs, sclera anicteric Neck: no JVD, supple Respiratory: no wheezing, no rales, no rhonchi Cardiovascular: RRR, no significant murmur, no rub Gastrointestinal: soft, non-tender, no distention, positive bowel sounds Musculoskeletal: no edema, pulses present Neurological: non-focal, normal sensation, moves all 4 limbs Psychiatric: normal affect, A&O x 3 Skin: no rash, normal turgor Dx/Plan (1) Acute metabolic encephalopathy Code(s): G93.41 - METABOLIC ENCEPHALOPATHY Status: Acute (2) Acute respiratory failure with hypoxia Code(s): J96.01 - ACUTE RESPIRATORY FAILURE WITH HYPOXIA Status: Resolved (3) High anion gap metabolic acidosis Code(s): E87.2 - ACIDOSIS Status: Resolved (4) Macrocytic anemia Code(s): D53.9 - NUTRITIONAL ANEMIA, UNSPECIFIED Status: Chronic (5) Seizure Code(s): R56.9 - UNSPECIFIED CONVULSIONS Status: Resolved (6) Thrombocytopenia Code(s): D69.6 - THROMBOCYTOPENIA, UNSPECIFIED Status: Chronic (7) Alcohol abuse Code(s): F10.10 - ALCOHOL ABUSE, UNCOMPLICATED Status: Chronic (8) Hypertension Code(s): I10 - ESSENTIAL (PRIMARY) HYPERTENSION Status: Chronic (9) Rhabdomyolysis Code(s): M62.82 - RHABDOMYOLYSIS Status: Acute (10) Hypophosphatemia Code(s): E83.39 - OTHER DISORDERS OF PHOSPHORUS METABOLISM Status: Acute (11) Hypomagnesemia Code(s): E83.42 - HYPOMAGNESEMIA Status: Acute - Plan cont current plan of care, plan discussed w/ family * stable for discharge * see discharge summery * medication reviewed as below * symptomatic treatment.. Review of Systems - Review of Systems ENT: negative: Ear Pain, Ear Discharge, Nose Pain, Nose Discharge, Nose Congestion, Mouth Pain, Mouth Swelling, Throat Pain, Throat Swelling, Other Respiratory: negative: Cough, Dry, Shortness of Breath, Hemoptysis, SOB with Excertion, Pleuritic Pain, Sputum, Wheezing Cardiovascular: negative: Chest Pain, Palpitations, Orthopnea, Paroxysmal Noc. Dyspnea, Edema, Light Headedness, Other Gastrointestinal: negative: Nausea, Vomiting, Abdominal Pain, Diarrhea, Constipation, Melena, Hematochezia, Other Genitourinary: negative: Dysuria, Frequency, Incontinence, Hematuria, Retention , Other Musculoskeletal: negative: Neck Pain, Shoulder Pain, Arm Pain, Back Pain, Hand Pain, Leg Pain, Foot Pain, Other - Medications/Allergies Allergies/Adverse Reactions: Allergies Allergy/AdvReac Type Severity Reaction Status Date / Time No Known Allergies Allergy Unverified 12/26/16 23:21
--- NOTE | 2016-12-30 15:00 | DIS ---
DATE OF ADMISSION: 12/27/2016 DATE OF DISCHARGE: 12/30/2016 PRIMARY CARE PHYSICIAN: [facility] call admission. DISCHARGE DISPOSITION: Home. PRIMARY DISCHARGE DIAGNOSES: Acute metabolic encephalopathy, status post respiratory failure; hypoma gnesemia; hypophosphatemia; rhabdomyolysis; high anion gap metabolic acidosis; seizure. SECONDARY DISCHARGE DIAGNOSES: Thrombocytopenia, macrocytic anemia, alcohol abuse, and hypertension. PRIMARY PROCEDURE/OPERATION: Endotracheal intubation and mechanical ventilatory support, central krysta e placement. RADIOLOGICAL INVESTIGATION: CT brain was normal. Chest x-ray was normal. SIGNIFICANT LABORATORY DATA: WBC 4.6, hemoglobin 13.1, and platelets 65. Sodium 135, potassium 4.1, BUN less than 4, creatinine 0.68, calcium 8.8, phosphorus 2.0, magnesium 2.0, AST 79, ALT 33, albumi n 3.6. CK of 882. Urinalysis normal. Urine drug screen negative. Serum drug screen unremarkable o ther than alcohol level 35. Ethylene glycol negative. Blood culture negative. DISCHARGE MEDICATIONS: Vitamin B12 1000 mcg p.o. daily, folic acid 1 mg p.o. daily, Keppra 500 mg p. o. daily, lisinopril 10 mg p.o. daily, multivitamin 1 tablet p.o. daily, Protonix 40 mg p.o. daily, a nd thiamine 100 mg p.o. daily. CONTRAINDICATIONS: None. CODE STATUS: FULL CODE. INPATIENT CONSULTANTS: Dr. Guajardo was consulted for vent management and Dr. Camille Live was consulted f or encephalopathy. TEST RESULTS PENDING ON DISCHARGE: None. ALLERGIES: No known drug allergy. DISCHARGE PLAN: Post hospital, patient is discharged to home and patient will go to alcohol rehabili tation program. Subsequently, patient will follow up with primary care physician. HOSPITAL COURSE: A 41-year-old male who was admitted by Dr. Munroe, please see his H&P for further details. The patient was admitted with altered mental status. He was encephalopathic on admission. Based on clinical scenario, patient was suspected for seizure. The patient had rhabdomyolysis. He had multiple metabolic abnormalities. The patient required intubation in the emergency room and sub sequently he was admitted to CCU. Next day, patient was extubated. When we got the history from [facility], the patient reported that he has vodka abuse history. This patient has also indirect evidence of alcohol abuse with leukopenia, macrocytosis, thrombocytopenia and abnormal LFT. He also had abnor mal electrolytes that were corrected while in hospital. His acid base abnormality was corrected with ventilatory treatment. Upon stabilization, this patient was transferred to medical floor. This patient agreed to go to [facility] program. On the day of discharge, I provided extensive counseling to avoid alcoho l abuse. I provided necessary patient information about alcohol rehabilitation program. Plan of car e discussed with the family member as well. The patient is seen and examined at bedside today. Please see my progress note from today for furthe r details. While in hospital, Neurology saw this patient and they recommended to continue Keppra therapy. Total time spent on discharge day 31 minutes.
--- NOTE | 2017-01-20 12:58 | EKG ---
Test Reason : Blood Pressure : / mmHG Vent. Rate : 109 BPM Atrial Rate : 109 BPM P-R Int : 144 ms QRS Dur : 096 ms QT Int : 352 ms P-R-T Axes : 034 006 044 degrees QTc Int : 474 ms Sinus tachycardia Otherwise normal ECG Confirmed by BROOKLYNN TERAN ([id number]), editor in chief MANOJ HARVEY ([id number]) on 01/20/2017 12:58:27 PM Referred By: Confirmed By:BROOKLYNN TERAN
== END 2016-12-30 13:01 | disposition home or self-care (01) | DRG 208 ==
LOC: ERS 21:46 → CCU 12-27 02:46 → T4-A 12-29 20:44
PROVIDERS: ADMIT Internal Medicine; ATTEND Internal Medicine
PROC: 0BH17EZ Insertion of Endotracheal Airway into Trachea, Via Natural or Artificial Opening (ICD-10-PCS; principal; 2016-12-27)
PROC: 5A1935Z Respiratory Ventilation, Less than 24 Consecutive Hours (ICD-10-PCS; 2016-12-27)
PROC: 02HV33Z Insertion of Infusion Device into Superior Vena Cava, Percutaneous Approach (ICD-10-PCS; 2016-12-27)
PROC: B548ZZA Ultrasonography of Superior Vena Cava, Guidance (ICD-10-PCS; 2016-12-27)
DX: J96.01 Acute respiratory failure with hypoxia (principal); G93.41 Metabolic encephalopathy; F10.231 Alcohol dependence with withdrawal delirium; E87.2 Acidosis; M62.82 Rhabdomyolysis; D69.6 Thrombocytopenia, unspecified; G31.2 Degeneration of nervous system due to alcohol; Y90.0 Blood alcohol level of less than 20 mg/100 ml; I10 Essential (primary) hypertension; K72.90 Hepatic failure, unspecified without coma; G40.909 Epilepsy, unspecified, not intractable, without status epilepticus; E83.42 Hypomagnesemia; E83.39 Other disorders of phosphorus metabolism; D53.9 Nutritional anemia, unspecified; Z91.14 Patient's other noncompliance with medication regimen
CPT/HCPCS: 31500; 36415; 36556; 51702; 70450; 71010; 80048; 80053; 80076; 80306; 80307; 81003; 81015; 82550; 82693; 82805; 83605; 83690; 83735; 83930; 84100; 84443; 85025; 87040; 93005; 94002; 94003; 94760; 96361; 96365; 96366; 96368; 96375; 99292; A4216; C1751; C9113; G8978-GP-CL; G8979-GP-CI; J1451; J1953; J2060; J2250; J2405; J2543; J2704; J3010; J3360; J3411; J3475; J7042; J7050; S0028